=== PATIENT | female | born 1990 | race Caucasian/White ===

== ENCOUNTER 2020-11-26 15:15 | Emergency (ER) | payer OTHER ==
[~2020-11-26] VITALS: Ht 149.9 cm; Wt 57.7 kg
[2020-11-26] MEDS ORDERED: BIRTH CONTROL (16:46)
[2020-11-26] MEDS ORDERED: KEFLEX500 MG PO (16:57)
[2020-11-26] MEDS ORDERED: MICONAZOLE23 TOP (16:57)
[2020-11-26 17:00] VITALS: BP 121/69
== END 2020-11-26 17:05 | disposition home or self-care (01) ==
LOC: ED 15:15
DX: L03.116 Cellulitis of left lower limb (principal); B35.3 Tinea pedis